=== PATIENT | male | born 1970 | race Hispanic/Latino ===

== ENCOUNTER 2017-05-14 08:00 | Day surgery (SDC) | payer OTHER ==
[2017-05-12 08:17] VITALS: BMI 30.5
[2017-05-14] MEDS ORDERED: Lactated Ringer's 1,000 ML IV ONE ×2 (10:02)
[2017-05-14] MEDS ORDERED: Propofol 10 mg/ml Inj (20 ML) ONE ×2 (10:12→10:49)
[2017-05-14] MEDS ORDERED: Midazolam 2 MG/2 ML VIAL ONE ×2 (10:12)
[2017-05-14] MEDS ORDERED: Bacitracin 150,000 UNIT in Sodium Chloride 0.9% Irrig 3,000 ML IR SCH (10:52)
[2017-05-14] MEDS ORDERED: Oxycodone/Acetaminophen 5/325 mg Tab PO PRN ×2 (11:45)
--- NOTE | 2017-05-14 11:48 | PCM.SURG1 ---
Surgeon's Initial Post Op Note - Surgeon's Notes Surgeon: Dr. Christy DPM Admitting Interviewer: Dr. Gilman DPM PGy-2 Type of Anesthesia: IV Sedation, Local Anesthesia Administered By: Dr. Jones Pre-Operative Diagnosis: right foot painful arthritic 1st MPJ Operative Findings: same Post-Operative Diagnosis: same Operation Performed: right foot cheilectomy with removal of loose bodies Specimen/Specimens Removed: bone right foot Estimated Blood Loss: EBL {In ML}: 10 Blood Products Given: N/A Drains Used: No Drains Post-Op Condition: Good Date of Surgery/Procedure: 05/14/17 Time of Surgery/Procedure: 11:48
[2017-05-14] MEDS ORDERED: HYDROmorphone 0.5 mg/0.5 ml ISec IVP PRN (11:54)
[2017-05-14] MEDS ORDERED: Lactated Ringer's 1,000 ML IV SCH (12:00)
[2017-05-14] MEDS ORDERED: ceFAZolin 1 gm FROZEN Premix 1 GM/50 ML ML IVPB ONE (12:06)
[2017-05-14] MEDS ORDERED: Bupivacaine HCl 0.5% PF (10 ml) Inj ONE (12:06)
[2017-05-14] MEDS ORDERED: Lidocaine 1% Inj (20ml) ONE (12:06)
[2017-05-14] MEDS ORDERED: Lactated Ringer's 500 ML IV ONE (12:35)
[2017-05-14 13:09] VITALS: RESP 18
[2017-05-14 14:39] VITALS: BP 130/83; PULSE 72; TEMP 97.8; O2SAT 100
--- NOTE | 2017-05-14 14:42 | RAD ---
PROCEDURE: Right Foot Radiographs. HISTORY: s/p right foot surgery COMPARISON: None available. FINDINGS: BONES: No acute displaced fracture. Joint space narrowing of the 1st PIP. JOINTS: No dislocation. SOFT TISSUES: Mild soft tissue swelling. Suspect subtle subcutaneous emphysema dorsal and medially. No evidence of radiopaque foreign body. OTHER FINDINGS: None. IMPRESSION: Mild soft tissue swelling. Suspect subtle subcutaneous emphysema dorsal and medially.
--- NOTE | 2017-05-16 02:10 | OP ---
PROCEDURE DATE: 05/14/2017 SURGEON: Jose Francisco Patel DPM. ASSISTANT [employer] C[employer] MANAGER: Susan Gilman DPM, PGY-2. ANESTHESIOLOGIST: Kvng Jones MD ANESTHESIA: IV sedation with local. PREOPERATIVE DIAGNOSIS: Right foot painful arthritic first metatarsophalangeal joint. POSTOPERATIVE DIAGNOSIS: Right foot painful arthritic first metatarsophalangeal joint. NAME OF PROCEDURE: Cheilectomy with removal of loose bodies. INDICATION: The patient is a 46-year-old male with the above diagnosis. The patient has exhausted all conservative treatment at this time and now requests surgical intervention. The patient signed the consent after careful explanation of risks, benefits, complications, and alternatives for surgical procedure. No guarantees were given or implied. PREPARATION: The patient was brought into the operating room and placed on the operating room table in a supine position. A time-out was performed for identification of correct patient and procedure. The patient received a total of 20 mL of 1:1 mixture of 1% lidocaine plain and 0.5% Marcaine plain in a Acevedo block fashion to the right foot. Once local anesthesia was achieved, the right foot was then prepped and draped in a normal sterile manner and the procedure began. PROCEDURE 1: Right foot cheilectomy with removal of loose bodies. Attention was directed to the dorsal aspect of the first metatarsal head when approximately 6 cm linear longitudinal incision was made medial and parallel to the tendon of the extensor hallucis longus and involved contour of the deformity. The incision was deepened through the subcutaneous tissue using electrocautery. Care was taken to identify and retract all vital neurovascular structures and all bleeders were cauterized and ligated as necessary. At this time, a linear-type capsulotomy was performed over the dorsal aspect of the first metatarsophalangeal joint. The periosteum and capsular structures were then carefully dissected free of the osseous attachment and resected medially and laterally,thus exposing the head of the first metatarsal in operating site. Next, utilizing a sagittal saw, the dorsomedial prominences were resected and passed from the operative field. All rough edges were then smoothed down with a bone rasp. Loose bodies were noted on the distal aspect of the proximal phalanx and those were removed with a rongeur. All rough edges were then smoothed with a reciprocal rasp. Correction of the deformity was assessed at this time and noted to be excellent. The surgical site was then irrigated with copious amounts of normal sterile saline mixed with hydrogen peroxide. The periosteal and capsular structures were then re-approximated using 3-0 chromic. The subcutaneous tissue was then approximated using 3-0 chromic and the skin was then re-approximated with #3-0 nylon. The incision site was then dressed with Xeroform, 4x4, ABD, Kerlix, and Vladimir. POSTOPERATIVE CONDITION: The patient tolerated the anesthesia and procedure well and was escorted to the recovery room with vital signs stable and neurovascular status intact to the right lower extremity. The patient will follow up with Dr. Patel in office. Susan Gilman DPM MTDAlie
== END 2017-05-14 13:45 | disposition home or self-care (01) ==
LOC: C.SDS 08:00
PROVIDERS: ATTEND Podiatrist Foot Surgery
DX: M13.871 Other specified arthritis, right ankle and foot (principal); M25.571 Pain in right ankle and joints of right foot; M24.071 Loose body in right ankle
CPT/HCPCS: 28090; 73630; 88304; 88311; 96366; J0690; J2250; J2704; J3010; J7120